=== PATIENT | male | born 1990 | race Hispanic/Latino ===

== ENCOUNTER 2019-10-13 21:17 | Emergency (ER) | payer OTHER ==
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
[2019-10-13] MEDS ORDERED: KETOROLAC 60 MG/2 ML INJ IM ONE (22:38)
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
[2019-10-13 23:43] VITALS: BP 148/78
== END 2019-10-13 23:45 | disposition home or self-care (01) ==
LOC: ED 21:17
DX: S32.010A Wedge compression fracture of first lumbar vertebra, initial encounter for closed fracture (principal); V89.2XXA Person injured in unspecified motor-vehicle accident, traffic, initial encounter; Y93.89 Activity, other specified; Y92.410 Unspecified street and highway as the place of occurrence of the external cause; Y99.8 Other external cause status
CPT/HCPCS: 72128; 72131; 96372; 99284; J1885